=== PATIENT | female | born 1980 | race African-American/Black ===

== ENCOUNTER 2025-01-12 13:53 | Emergency (ER) | payer OTHER ==
[~2025-01-12] VITALS: Ht 157.5 cm; Wt 95.5 kg
[2025-01-12 13:55] VITALS: BP 144/87; PULSE 102; RESP 16; TEMP 98; O2SAT 97
[2025-01-12] MEDS ORDERED: ALBUAER3 IN (15:15)
--- NOTE | 2025-01-12 15:15 | ED.PDOC ---
History of Present Illness HPI Comments 44F presents to the Er w/ prior MHx of Asthma, HTN and the c/c of medication refill. Pt reports on running out of her Asthma and HTN medication and needs a refill. Denies chills, fever, N/V/D, SOB, CP. Denies any other associated symptom's, modifiers, or recent injuries or sick contact at this time. Chief Complaint: Medical Clearance Time Seen by MD: 15:05 Reviewed Notes: Nurses Notes, Medications, Allergies Allergies: Coded Allergies: NO KNOWN ALLERGIES (Unverified , 01/12/25) Home Meds Active Scripts Albuterol Sulfate (VENTOLIN MDI) 90 Mcg Ih, 90 MCG IN Q12HP PRN for 7 Days, #2 INH Prov:RIANA JAMISON MD 01/12/25 Information Source: Patient Mode of Arrival: Ambulatory Severity: Moderate Timing: Came on: Suddenly Duration: Since onset Prehospital treatment: None Past Medical History PAST MEDICAL HISTORY: Asthma, HTN Surgical History: Denies all surgeries IRONER HAND History: No Pertinent IRONER HAND History Family History Family History: Reviewed,noncontributory to illness, Unknown Social History Smoker: Non-Smoker Alcohol: Denies ETOH Use Drugs: Denies Drug Use Lives In: Home Constitutional: reports: others (Med Refill); denies: chills, diaphoresis, fatigue, fever, malaise, sweats, weakness EENTM: denies: blurred vision, double vision, ear bleeding, ear discharge, ear drainage, ear pain, ear ringing, eye pain, eye redness, hearing loss, mouth pain, mouth swelling, nasal discharge, nose bleeding, nose congestion, nose pain, photophobia, tearing, throat pain, throat swelling, voice changes, others Respiratory: denies: cough, hemoptysis, orthopnea, SOB at rest, shortness of breath, SOB with excertion, stridor, wheezing, others Cardiovascular: denies: chest pain, dizzy spells, diaphoresis, Dyspnea on exertion, edema, irregular heart beat, left arm pain, lightheadedness, pa lpitations, PND, syncope, others Gastrointestinal: denies: abdomen distended, abdominal pain, blood streaked bowels, constipated, diarrhea, dysphagia, difficulty swallowing, hematemesis, melena, nausea, poor appetite, poor fluid intake, rectal bleeding, rectal pain, vomiting, others Genitourinary: denies: abnormal vagina bleeding, burning, dyspareunia, dysuria, flank pain, frequency, hematuria, incontinence, pain, , vagina discharge, urgency, others Neurological: denies: dizziness, fainting, headache, left sided numbness, left sided weakness, numbness, paresthesia, pre-existing deficit, right sided numbness, right sided weakness, seizure, speech problems, tingling, tremors, weakness, others Musculoskeletal: denies: back pain, gout, joint pain, joint swelling, muscle pain, muscle stiffness, neck pain, others Integumetry: denies: bruises, change in color, change in hair/nails, dryness, laceration, lesions, lumps, rash, wounds, others Allergic/Immunocompromised: denies: Difficulty Healing, Frequent Infections, Hives, Itching, others Hematologic/Lymphatic: denies: anemia, blood clots, easy bleeding, easy bruising, swollen glands, others Endocrine: denies: excessive hunger, excessive sweating, excessive thirst, excessive urination, flushing, intolerance to cold, intolerance to heat, unexplained weight gain, unexplained weight loss, others Psychiatric: denies: anxiety, bipolar disorder, depression, hopeless, panic disorder, schizophrenia, sleepless, suicidal, others All Other Systems: Reviewed and Negative Physical Exam General Appearance: No Apparent Distress HEENT: Normal ENT Inspection, Pharynx Normal, TMs Normal Neck: Full Range of Motion, Non-Tender, Normal, Normal Inspection Respiratory: Chest Non-Tender, Lungs Clear, No Accessory Muscle Use, No Respiratory Distress, Normal Breath Sounds Cardiovascular: No Edema, No JVD, No Murmur, No Gallop, Normal Peripheral Pulses, Regular Rate/Rhythm Breast Exam: Deferred Gastrointestinal: No Organomegaly, Non Tender, No Pulsatile Mass, Normal Bowel Sounds, Soft Genitalia: Deferred Pelvic: Deferred Rectal: Deferred Extremities: No calf tenderness, Normal capillary refill, Normal inspection, Normal range of motion, Non-tender, No pedal edema Musculoskeletal : Apperance: Normal Neurologic: Alert, highway design engineer II-XII nml as Tested, No Motor Deficits, Normal Affect, Normal Mood, No Sensory Deficits Cerebellar Function: Normal Reflexes: Normal Skin: Dry, Normal Color, Warm Lymphatic: No Adenopathy Was a procedure done? Was a procedure done?: No Differential Dx Considerations may include: Medication refill, generalized weakness X-Ray, Labs, Meds, VS Vital Signs Date Time Temp Pulse Resp B/P (MAP) Pulse Ox O2 Delivery O2 Flow Rate FiO2 01/12/25 13:55 98.0 102 16 144/87 97 98.0 The patient is being given a prescription of albuterol inhaler The patient will follow up with the primary care doctor The patient will return to the emergency department's condition worsens. Time of 1ST Reevaluation: 15:35 Reevaluation 1ST: Unchanged Patient Education/Counseling: Diagnosis, Treatment, Prognosis, Need For Follow Up Family Education/Counseling: No Family Present SEPSIS Sepsis Screen Date sepsis recognized/suspect: Jan 12, 2025 Time Sepsis recognized/suspect: 1356 Recent Procedure: No On Antibiotic Therapy: No Respiratory Rate >20: No Heart Rate >90: Yes Temp<36 C (96.8 F) or >38.3 C: No SBP <90 or MAP <65 mmHG: No New Acute Mental Status Change: No Is the patient on CPAP, BIPAP,: No Vital Signs Date Time Temp Pulse Resp B/P (MAP) Pulse Ox O2 Delivery O2 Flow Rate FiO2 01/12/25 13:55 98.0 102 16 144/87 97 98.0 Departure 1 Departure Time of Disposition: 15:19 Impression: Primary Impression: Medication refill Additional Impression: Asthma Qualified Codes: J45.20 - Mild intermittent asthma, uncomplicated Disposition: 01 HOME / SELF CARE / HOMELESS Condition: Fair e-Prescriptions Albuterol Sulfate (VENTOLIN MDI) 90 Mcg Ih 90 MCG IN Q12HP PRN for 7 Days, #2 INH Prov: RIANA JAMISON MD 01/12/25 Discharged With: Self Critical Care Note Critical Care Time?: No Stability Stability form required: No Heart Score Heart Score: Heart Score Response (Comments) Value History N/A 0 EKG N/A 0 Age N/A 0 Risk Factors N/A 0 Troponin N/A 0 Total 0 I personally scribed for RIANA JAMISON MD ([email or web address]) on 01/12/25 at 15:15. Electronically submitted by Sajan Ruvalcaba ([email or web address]). RIANA JAMISON MD Jan 12, 2025 15:15
== END 2025-01-12 15:29 | disposition home or self-care (01) ==
LOC: ER 13:53
DX: J45.909 Unspecified asthma, uncomplicated (principal); I10 Essential (primary) hypertension; Z76.0 Encounter for issue of repeat prescription

== ENCOUNTER 2025-04-02 02:48 | Inpatient (IN) | payer OTHER ==
[~2025-04-02] VITALS: Ht 30.5 cm; Wt 0.5 kg
[~2025-04-02 02:48] MED LIST: ALBUAER3 IN
--- NOTE | 2025-04-02 03:01 | ED.PDOC ---
History of Present Illness HPI Comments 44-year-old female with a history of asthma, worsening symptoms over the past few hours. Patient has been on a prednisone Dosepak. She ran out of nebulizer treatment and proximally 8 hours ago. Patient reports being intubated in the past for asthma exacerbation. REVIEW OF SYSTEMS: Unable to obtain due to acuity of condition. PHYSICAL EXAM: General: Awake, alert and oriented. Patient in distress. Skin: Skin in warm, dry and intact. Appropriate color for ethnicity. HEENT: The head is normocephalic and atraumatic. Conjunctivae are clear without exudates or hemorrhage. Sclera is non-icteric. Eyelids are normal in appearance without swelling or lesions. Oral mucosa is pink and moist Neck: The neck is supple with normal range of motion. No JVD. Cardiac: Rapid rate regular rhythm No murmurs, gallops, or rubs are auscultated. Respiratory: Patient is tachypneic with labored breathing. Positive wheezing bilaterally. Abdominal: Abdomen is soft, non-tender without distention, guarding or rigidity. Bowel sounds are present and normoactive in all four quadrants. Extremities: Upper and lower extremities are atraumatic in appearance without deformity or edema. Neurological: The patient is awake, alert and oriented to person, place, and time with normal speech. Speech is clear. There is no facial asymmetry. Chief Complaint: Shortness of Breath Time Seen by MD: 02:56 Allergies: Coded Allergies: NO KNOWN ALLERGIES (Unverified , 01/12/25) Home Meds Active Scripts Albuterol Sulfate (VENTOLIN MDI) 90 Mcg Ih, 90 MCG IN Q12HP PRN for 7 Days, #2 INH Prov:RIANA JAMISON MD 01/12/25 Past Medical History PAST MEDICAL HISTORY: Asthma, HTN Surgical History: Denies all surgeries CLOD PULLER History: No Pertinent CLOD PULLER History Family History Family History: Reviewed,noncontributory to illness, Unknown Social History Smoker: Non-Smoker Alcohol: Denies ETOH Use Drugs: Denies Drug Use Lives In: Home Was a procedure done? Was a procedure done?: No EKG EKG : Comments Sinus rhythm at a rate of 105. No STEMI. X-Ray, Labs, Meds, VS Vital Signs Date Time Temp Pulse Resp B/P (MAP) Pulse Ox O2 Delivery O2 Flow Rate FiO2 04/02/25 03:28 Nasal Cannula* 3 32 04/02/25 03:10 20 96 Nasal Cannula* 3 32 04/02/25 03:00 97.9 105 25 165/112 (129) 93 97.9 04/02/25 02:57 97.5 115 32 153/130 96 97.5 04/02/25 02:53 105 Lab Test 04/02/25 03:15 Range/Units White Blood Count Pending Red Blood Count Pending Hemoglobin Pending Hematocrit Pending Mean Corpuscular Volume Pending Mean Corpuscular Hemoglobin Pending Mean Corpuscular Hemoglobin Concent Pending Red Cell Distribution Width Pending Platelet Count Pending Mean Platelet Volume Pending Neutrophils (%) (Auto) Pending Lymphocytes (%) (Auto) Pending Monocytes (%) (Auto) Pending Basophils (%) (Auto) Pending Neutrophils # (Auto) Pending Lymphocytes # (Auto) Pending Monocytes # (Auto) Pending Sodium Level Pending Potassium Level Pending Chloride Level Pending Carbon Dioxide Level Pending Anion Gap Pending Blood Urea Nitrogen Pending Creatinine Pending Glomerular Filtration Rate Calc Pending BUN/Creatinine Ratio Pending Serum Glucose Pending Calcium Level Pending Total Bilirubin Pending Aspartate Amino Transferase (AST) Pending Alanine Aminotransferase (ALT) Pending Alkaline Phosphatase Pending Troponin I High Sensitivity Pending Total Protein Pending Albumin Pending Current Medications Medications (Trade) Dose Ordered Sig/[place] Route Start Time Stop Time Status Last Admin Albuterol (Ventolin Medneb) 10 mg ONCE ONCE NEB 04/02/25 03:00 04/02/25 03:01 DC 04/02/25 03:10 Ipratropium [place] (Atrovent Medneb) 0.5 mg ONCE ONCE NEB 04/02/25 03:00 04/02/25 03:01 DC 04/02/25 03:10 Methylprednisolone Sodium Succinate (Solu Medrol) 80 mg ONCE ONCE IV 04/02/25 03:00 04/02/25 03:01 DC 04/02/25 03:07 Magnesium Sulfate/ Dextrose 100 ml @ 400 mls/hr Q1H IV 04/02/25 03:00 04/02/25 04:14 04/02/25 03:07 Time of 1ST Reevaluation: 02:59 Reevaluation 1ST: Unchanged Patient Education/Counseling: Need For Follow Up Family Education/Counseling: No Family Present SEPSIS Sepsis Screen Physician Orders Magnesium Sulfate 1gm/100ml (04/02/25 03:00) Titrate Oxygen (04/02/25 02:58) Oxygen (04/02/25 ) Continous Pulse Oximetry (04/02/25 02:58) Saline Lock (04/02/25 02:58) Medical Customer Service Representative (04/02/25 ) Complete Blood Count (04/02/25 02:58) Comprehensive Metabolic Panel (04/02/25 02:58) Troponin-I Hs (04/02/25 02:58) Covid19 Antigen [place] (04/02/25 ) Rapid Influenza A&B (04/02/25 02:58) Chest Xray 1 View (04/02/25 02:58) Electrocardigram (04/02/25 02:58) Troponin-I Hs (04/02/25 03:58) Troponin-I Hs (04/02/25 05:58) Electrocardigram (04/02/25 03:58) Electrocardigram (04/02/25 05:58) Notify Md If Abnormal Vs (04/02/25 02:58) Vital Signs Date Time Temp Pulse Resp B/P (MAP) Pulse Ox O2 Delivery O2 Flow Rate FiO2 04/02/25 03:28 Nasal Cannula* 3 32 04/02/25 03:10 20 96 Nasal Cannula* 3 32 04/02/25 03:00 97.9 105 25 165/112 (129) 93 97.9 04/02/25 02:57 97.5 115 32 153/130 96 97.5 04/02/25 02:53 105 Laboratory Tests Test 04/02/25 03:15 White Blood Count Pending Medications Medications Dose Ordered Sig/[place] Route Start Time Stop Time Status Last Admin Dose Admin Albuterol 10 mg ONCE ONCE NEB 04/02/25 03:00 04/02/25 03:01 DC 04/02/25 03:10 Ipratropium [place] 0.5 mg ONCE ONCE NEB 04/02/25 03:00 04/02/25 03:01 DC 04/02/25 03:10 Magnesium Sulfate/ Dextrose 100 ml @ 400 mls/hr Q1H IV 04/02/25 03:00 04/02/25 04:14 04/02/25 03:07 Methylprednisolone Sodium Succinate 80 mg ONCE ONCE IV 04/02/25 03:00 04/02/25 03:01 DC 04/02/25 03:07 Departure 1 Departure Comments MDM: 44-year-old female arrived to the emergency department as a walk-in with respiratory distress, she was found to be the low 80s on room air. She was started on 4 L nasal cannula and oxygen saturation improved to 96% She was treated with albuterol, ipratropium, magnesium and Solu-Medrol. Patient's symptoms improved with treatment in the emergency department. Patient continues to have significant wheezing. Extensive evaluation was performed in attempt to identify or rule out: (See differential diagnosis section) The following tests were ordered, and results were reviewed by me and discussed with patient: (See diagnostic results section) The following test were independently interpreted by me: EKG I reviewed and agreed with the following test results read by other providers: N/A I reviewed the following notes from the pt's past medical encounters: N/A Additional information was gathered from interviewing the following independent historians: N/A Discussion of management or test interpretation with external physician/other qualified health medicare sales executive: N/A Addressed an acute or chronic illness that poses a threat to life or bodily function: Hypoxia, Asthma Exacerbation Decision regarding hospitalization or escalation of hospital level of care: Risk and benefits of admission for further treatment of patient's condition was considered. Due to patient's current clinical condition, high risk of decline and poor outcome if discharged and need for further inpatient management and monitoring, patient will be admitted to the hospital. Drug therapy requiring intensive monitoring for toxicity: IV solumedrol, IV magnesium Critical Care Note Critical Care Time?: No Stability Stability form required: No Heart Score Heart Score: Heart Score Response (Comments) Value History N/A 0 EKG N/A 0 Age N/A 0 Risk Factors N/A 0 Troponin N/A 0 Total 0 FLAVIA IZAGUIRRE MD Apr 02, 2025 03:01
[2025-04-02] MEDS: MAGNESIUM SULFATE 1GM/100ML 100 ML IV SCH (03:07)
[2025-04-02] MEDS: methylPREDNISolone SOD SUCC 125 MG/2 ML VL IV ONE (03:07)
[2025-04-02] MEDS: ALBUTEROL SULF 2.5 MG/0.5ML(0.5%) NEB SOLN NEB ONE (03:10)
[2025-04-02] MEDS: IPRATROPIUM BROM 0.5 MG/2.5ML INH SOL NEB ONE (03:10)
[2025-04-02 03:33] LABS: Hematocrit 34.0 % (36.0-46.0); Hemoglobin 10.9 g/dL (12.2-16.2); Nucleated Red Blood Cells % 0.0 %
[2025-04-02 03:35] LABS: Mean Corpuscular Hemoglobin 24.2 pg (28.0-32.0); Mean Corpuscular Volume 75.5 fL (80.0-100.0)
--- NOTE | 2025-04-02 03:44 | ECG ---
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
[2025-04-02 03:46] LABS: Alanine Aminotransferase 14 U/L (7-40); Albumin 4.1 g/dL (3.2-4.8); Alkaline Phosphatase 55 U/L (46-116); Anion Gap 11 (5-15); BUN/Creatinine Ratio 16.5 (10.0-20.0); Blood Urea Nitrogen 13 mg/dL (9-23); Calcium 9.1 mg/dL (8.7-10.4); Carbon Dioxide 22 mmol/L (20-31); Glucose 92 mg/dL (74-106); Potassium 3.9 mmol/L (3.5-5.1); Sodium 141 mmol/L (136-145); Total Protein 7.3 g/dL (5.7-8.2)
--- NOTE | 2025-04-02 04:02 | DVH ---
CHEST RADIOGRAPH Indication: Shortness of breath Technique: Single frontal view of the chest was obtained Comparison: None FINDINGS: Lines and Tubes: None Lungs: No focal consolidation. Pleura: No effusion. No pneumothorax. Cardiomediastinal contours: Unremarkable Bones: No acute osseous abnormality. IMPRESSION: No acute cardiopulmonary disease.
[2025-04-02 04:08] LABS: Bilirubin, Total 0.2 mg/dL (0.2-1.0); Chloride 108 mmol/L (98-107)
[2025-04-02 04:48] LABS: COVID19 ANTIGEN SOFIA FIA NEGATIVE (NEGATIVE)
--- NOTE | 2025-04-02 05:41 | ECG ---
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
[2025-04-02] MEDS ORDERED: ACETAMINOPHEN 325 MG TAB PO PRN (05:45)
[2025-04-02] MEDS ORDERED: ALBUTEROL SULF 2.5 MG/0.5ML(0.5%) NEB SOLN NEB SCH (06:00)
--- NOTE | 2025-04-02 06:12 | DVHHPRES ---
History of Present Illness Resident Creating Document: JOSE RAFAEL ADAMS RESIDENT History of Present Illness This is a 44-year-old female with past medical history of Asthma with multiple intubation, last intubation March 2024, HTN, anxiety disorder, joint pain present to ER with the complaint of shortness of breath which started for last 2 weeks after exposure to cold but aggravated around 10:00 p.m. day before admission. Patient needed 2 times hospitalization past week in [facility]. Patient not use oxygen at home. Patient denies any fever, headache, nausea, chest pain, abdominal pain, dysuria or any other acute distress. Patient follow-up with Cardiology year ago but never follow-up with pulmonology. Patient compliance with her home medication. Past medical history: As above Past surgical history: Nothing contributory Family history: Mother-asthma, COPD Personal history: Denies any smoking or illicit drug use, ETOH occasionally Allergy: No known allergy PCP: Unable to recall name Review of Systems Constitutional: Yes: Malaise; No: Fever, Chills, Sweats, Weakness, Other Eyes: No: Pain, Vision change, Conjunctivae inflammation, Eyelid inflammation, Other, Redness ENT: No: Ear pain, Ear discharge, Nose pain, Nose discharge, Nose congestion, Mouth pain, Mouth swelling, Throat pain, Throat swelling, Other Respiratory: Shortness of breath, SOB with excertion, Wheezing; No: Cough, Dry, Hemoptysis, Pleuritic Pain, Sputum, Wheezing, Other Cardiovascular: No: Chest Pain, Palpitations, Orthopnea, Paroxysmal Noc. Dyspnea, Edema, Lt Headedness, Other Gastrointestinal: No: Nausea, Vomiting, Abdominal Pain, Diarrhea, Constipation, Melena, Hematochezia, Other Genitourinary: No Dysuria, No Frequency, No Incontinence, No Hematuria, No Retention, No Other Musculoskeletal: other (Multiple joint pain); No: neck pain, shoulder pain, arm pain, back pain, hand pain, leg pain, foot pain Skin: No: Rash, Lesions, Jaundice, Bruising, Other Neurological: No: Weakness, Numbness, Incoordination, Change in speech, Confusion, Seizures, Other Allergies: Coded Allergies: NO KNOWN ALLERGIES (Unverified , 01/12/25) Exam Vital Signs Vital Signs Date Time Temp Pulse Resp B/P (MAP) Pulse Ox O2 Delivery O2 Flow Rate FiO2 04/02/25 04:00 88 17 155/97 (116) 99 04/02/25 03:28 Nasal Cannula* 3 32 04/02/25 03:00 97.9 97.9 General Appearance: Alert, Oriented X3, Cooperative, moderate distress, Other (Currently on 1 L oxygen via nasal cannula) HEENT: Atraumatic, PERRLA, EOMI Respiratory: Normal air movement, Other (Expiratory wheeze bilateral lung on auscultation) Cardiovascular: Regular rate, Normal S1, Normal S2, No murmurs Abdominal: Soft, No tenderness, No hepatospenomegaly, No masses Extremities: No clubbing, No cyanosis, No edema, Normal pulses Skin: No rashes, No significant lesion Neuro: Normal gait, Normal speech, Normal tone, Sensation intact Psych/Mental Status: Mental status NL, Mood NL Labs/Xrays Labs Test 04/02/25 04:00 04/02/25 03:57 04/02/25 03:15 Range/Units Influenza Type A Antigen Negative Negative Influenza Type B Antigen Negative Negative SARS-CoV-2 Antigen (Rapid) Negative NEGATIVE Troponin I High Sensitivity < 3 L </=34 ng/L White Blood Count 17.3 H 4.4-10.8 10^3/uL Red Blood Count 4.50 4.0-5.20 10^6/uL Hemoglobin 10.9 L 12.2-16.2 g/dL Hematocrit 34.0 L 36.0-46.0 % Mean Corpuscular Volume 75.5 L 80.0-100.0 fL Mean Corpuscular Hemoglobin 24.2 L 28.0-32.0 pg Mean Corpuscular Hemoglobin Concent 32.1 32.0-36.0 g/dL Red Cell Distribution Width 17.5 H 11.8-14.3 % Platelet Count 415 140-450 10^3/uL Mean Platelet Volume 8.2 6.9-10.8 fL Neutrophils (%) (Auto) 77.4 37.0-80.0 % Lymphocytes (%) (Auto) 14.9 10.0-50.0 % Monocytes (%) (Auto) 6.8 0.0-12.0 % Eosinophils (%) (Auto) 0.6 0.0-7.0 % Basophils (%) (Auto) 0.3 0.0-2.0 % Neutrophils # (Auto) 13.4 H 1.6-8.6 10 ^3/uL Lymphocytes # (Auto) 2.6 0.4-5.4 10 ^3/uL Monocytes # (Auto) 1.2 0-1.3 10 ^3/uL Eosinophils # (Auto) 0.1 0-0.8 10 ^3/uL Basophils # (Auto) 0 0-0.2 10 ^3/uL Nucleated Red Blood Cells 0.0 % Sodium Level 141 136-145 mmol/L Potassium Level 3.9 3.5-5.1 mmol/L Chloride Level 108 H 98-107 mmol/L Carbon Dioxide Level 22 20-31 mmol/L Anion Gap 11 5-15 Blood Urea Nitrogen 13 9-23 mg/dL Creatinine 0.79 0.550-1.02 mg/dL Glomerular Filtration Rate Calc 95 >90 mL/min BUN/Creatinine Ratio 16.5 10.0-20.0 Serum Glucose 92 74-106 mg/dL Calcium Level 9.1 8.7-10.4 mg/dL Total Bilirubin 0.2 0.2-1.0 mg/dL Aspartate Amino Transferase (AST) 18 13-40 U/L Alanine Aminotransferase (ALT) 14 7-40 U/L Alkaline Phosphatase 55 46-116 U/L Total Protein 7.3 5.7-8.2 g/dL Albumin 4.1 3.2-4.8 g/dL SEPSIS Sepsis Screen Date sepsis recognized/suspect: Apr 02, 2025 Time Sepsis recognized/suspect: 318 Recent Procedure: No On Antibiotic Therapy: No Respiratory Rate >20: No Heart Rate >90: Yes Temp<36 C (96.8 F) or >38.3 C: No SBP <90 or MAP <65 mmHG: No New Acute Mental Status Change: No Is the patient on CPAP, BIPAP,: No Physician Orders Titrate Oxygen (04/02/25 02:58) Oxygen (04/02/25 ) Continous Pulse Oximetry (04/02/25 02:58) Saline Lock (04/02/25 02:58) Base Manager (04/02/25 ) Chest Xray 1 View (04/02/25 02:58) Troponin-I Hs (04/02/25 05:58) Electrocardigram (04/02/25 05:58) Notify If Abnormal Vs (04/02/25 02:58) Admit (04/02/25 05:35) Code Status (04/02/25 05:35) Acetaminophen Tablet (Tylenol Tablet) (04/02/25 05:45) Oxygen By Nasal Cannula (04/02/25 05:35) Notify Of Changes From Base (04/02/25 05:35) Albuterol Medneb (Ventolin Medneb) (04/02/25 06:00) Ipratropium Medneb (Atrovent Medneb) (04/02/25 06:00) Lidocaine 5% Topical Patch (Lidoderm 5% (04/02/25 10:00) Methylprednisolone Sod Succ (Solu Medrol (04/02/25 10:00) Vital Signs Date Time Temp Pulse Resp B/P (MAP) Pulse Ox O2 Delivery O2 Flow Rate FiO2 04/02/25 04:00 88 17 155/97 (116) 99 04/02/25 03:42 95 04/02/25 03:28 Nasal Cannula* 3 32 04/02/25 03:10 20 96 Nasal Cannula* 3 32 04/02/25 03:00 97.9 105 25 165/112 (129) 93 97.9 04/02/25 02:57 97.5 115 32 153/130 96 97.5 04/02/25 02:53 105 Laboratory Tests Test 04/02/25 03:15 White Blood Count 17.3 10^3/uL (4.4-10.8) H Medications Medications Dose Ordered Sig/[place] Route Start Time Stop Time Status Last Admin Dose Admin Albuterol 10 mg ONCE ONCE NEB 04/02/25 03:00 04/02/25 03:01 DC 04/02/25 03:10 10 MG Ceftriaxone Sodium 50 ml @ 100 mls/hr ONCE ONCE IV 04/02/25 05:00 04/02/25 05:29 DC 04/02/25 05:07 100 MLS/HR Ipratropium [place] 0.5 mg ONCE ONCE NEB 04/02/25 03:00 04/02/25 03:01 DC 04/02/25 03:10 0.5 MG Magnesium Sulfate/ Dextrose 100 ml @ 400 mls/hr Q1H IV 04/02/25 03:00 04/02/25 04:14 DC 04/02/25 03:35 400 MLS/HR Methylprednisolone Sodium Succinate 80 mg ONCE ONCE IV 04/02/25 03:00 04/02/25 03:01 DC 04/02/25 03:07 80 MG Assessment/Plan Assessment/Plan Acute hypoxic respiratory failure secondary to Asthma exacerbation Leukocytosis likely reactive due to steroid use Patient became tachycardic and tachypneic during admission In ER patient received ceftriaxone, magnesium sulfate, methylprednisolone, breathing treatment EKG sinus rhythm, HR 95, QTC 443 influenza and COVID-19- negative troponin: <3, repeat<3 x-ray chest- no acute cardiopulmonary disease Leukocytosis with no left shift Albuterol nebulizer Ipratropium nebulized Methylprednisolone Oxygen via nasal cannula as needed Essential hypertension During admission, BP 165/112 and repeat BP 155/97 Home medication clonidine 0.1 mg Monitor blood pressure Microcytic hypochromic anemia hemoglobin 10.9, HCT 34.0, MCV 75.5, RDW 17.5 no signs symptoms of active bleeding ferritin and iron panel, fobt ANXIETY DISORDER Home medication Ativan 0.5 mg Multiple joint pain likely osteoarthritis Lidocaine patch Methocarbamol-medication Tylenol as needed Obesity Lifestyle modification Diet: Regular DVT prophylaxis: Lovenox GI prophylaxis: None Goals of care discussions. More than 27 minute spent with patient. Full code status. Case discussed with Dr. Mendieta Plan discussed with: Patient, Other (Nurse) My Orders Orders - JOSE RAFAEL ADAMS RESIDENT Procedure Category Date Status Time Admit ADMIT 04/02/25 Verified 05:35 Code Status CODE 04/02/25 Verified 05:35 Acetaminophen Tablet PHA 04/02/25 Verified (Tylenol Tablet) 05:45 Oxygen By Nasal RT 04/02/25 Verified Cannula 05:35 Notify Of Changes ASAF 04/02/25 Verified From Base 05:35 Albuterol Medneb PHA 04/02/25 Verified (Ventolin Medneb) 06:00 Ipratropium Medneb PHA 04/02/25 Verified (Atrovent Medneb) 06:00 Lidocaine 5% Topical PHA 04/02/25 Verified Patch (Lidoderm 5% 10:00 Methylprednisolone PHA 04/02/25 Verified Sod Succ (Solu Medrol 10:00 Date of Service: Apr 02, 2025 Billing Provider: DEMETRI MENDIETA MD Common Visit Codes: 77849-[id number] INP/OBS CARE (HIGH) Secondary Visit Codes: 47009-[id number] CARE PLAN 30 MINUTES JOSE RAFAEL ADAMS RESIDENT Apr 02, 2025 06:12
--- NOTE | 2025-04-02 06:15 | ECG ---
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
[2025-04-02] MEDS: IPRATROPIUM BROM 0.5 MG/2.5ML INH SOL NEB SCH (06:50)
[2025-04-02 06:51] VITALS: PULSE 91; RESP 16; O2SAT 95
[2025-04-02] MEDS: ALBUTEROL SULF 2.5 MG/0.5ML(0.5%) NEB SOLN NEB SCH (06:51)
[2025-04-02] MEDS: ALBUTEROL SULF 2.5 MG/0.5ML(0.5%) NEB SOLN ONE (06:51)
[2025-04-02 06:56] VITALS: PULSE 92; RESP 16; O2SAT 99
[2025-04-02 07:03] LABS: Hematocrit 33.6 % (36.0-46.0); Hemoglobin 11.0 g/dL (12.2-16.2); Mean Corpuscular Hemoglobin 24.5 pg (28.0-32.0); Mean Corpuscular Volume 75.2 fL (80.0-100.0); Nucleated Red Blood Cells % 0.0 %
[2025-04-02 07:04] VITALS: BP 136/95; PULSE 91; RESP 16; TEMP 97.9; O2SAT 95
[2025-04-02 07:24] LABS: Potassium 4.0 mmol/L (3.5-5.1); Sodium 141 mmol/L (136-145)
[2025-04-02 07:25] LABS: Anion Gap 12 (5-15); Carbon Dioxide 22 mmol/L (20-31)
[2025-04-02 07:26] LABS: Calcium 8.8 mg/dL (8.7-10.4)
[2025-04-02 07:30] LABS: Glucose 96 mg/dL (74-106)
[2025-04-02 07:31] LABS: BUN/Creatinine Ratio 17.3 (10.0-20.0); Blood Urea Nitrogen 14 mg/dL (9-23); Chloride 107 mmol/L (98-107)
[2025-04-02] MEDS ORDERED: methylPREDNISolone SOD SUCC 40 MG/ML VL IV SCH (10:00)
[2025-04-02] MEDS ORDERED: LIDOCAINE 5% TOPICAL PATCH TOP SCH (10:00)
[2025-04-02 10:32] LABS: Total Iron Binding Capacity 338.0 ug/dL (250-425)
[2025-04-02 10:42] LABS: Iron 27.0 ug/dL (50-170)
== END 2025-04-02 07:59 | disposition left against medical advice (07) | DRG 133 ==
LOC: ER 02:48 → OVERFLOW 05:35
PROVIDERS: ADMIT Nurse Practitioner Acute Care; ATTEND Nurse Practitioner Acute Care
DX: J96.01 Acute respiratory failure with hypoxia (principal); J45.901 Unspecified asthma with (acute) exacerbation; E66.9 Obesity, unspecified; I10 Essential (primary) hypertension; D50.9 Iron deficiency anemia, unspecified; F41.9 Anxiety disorder, unspecified; T38.0X5A Adverse effect of glucocorticoids and synthetic analogues, initial encounter; D72.829 Elevated white blood cell count, unspecified; Z53.29 Procedure and treatment not carried out because of patient's decision for other reasons; Z20.822 Contact with and (suspected) exposure to COVID-19; M15.9 Polyosteoarthritis, unspecified; Z82.5 Family history of asthma and other chronic lower respiratory diseases; Y92.89 Other specified places as the place of occurrence of the external cause
CPT/HCPCS: 36415; 71045; 80048; 80053; 82306; 82728; 83036; 83540; 83550; 84443; 84484; 85025; 87426; 87804; 93005; 94640; 96365; 96375; G0378